=== PATIENT | male | born 1935 | race Caucasian/White ===

== ENCOUNTER 2019-08-16 08:44 | Day surgery (SDC) | payer MEDICARE, SELFPAY ==
--- NOTE | 2019-08-15 16:41 | PM.PREOP ---
Pre-operative Note Interval Note History & Physical reviewed/Exam performed by Physician: Yes Changes to H&P: No
--- NOTE | 2019-08-16 07:26 | PM.OP.1 ---
Operative Date/Time/Diagnoses Date of procedure: 08/16/19 Time of procedure: 09:45 Procedure & Clinicians Procedure: Preoperative diagnoses: 1. 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 Postoperative diagnoses: 1. Bilateral upper lid dermatochalasis treated with blepharoplasty 2. Status post ectropion repair with spindle procedure and horizontal lid shortening. 3. Punctal malrotation with punctal stenosis. Procedure: Bilateral upper blepharoplasty for functional symptoms. Bilateral lower lid functional ectropion repair. Bilateral lower lid punctal 3 snip procedure and probe. Surgeon: Angelica Birmingham MD Complications: none Specimen: None Blood loss: Less than 3 mL Anesthesia: Local infiltration with monitored standby. Indications: Bilateral upper lids obstructing superior vision. Preoperative external photographs taken and loss of vision to within 2 mm of marginal light reflex. Functional surgery. Bilateral lower lid laxity with exposure symptoms and malrotated puncta. Patient presents with excessive irritation and tearing from exposure due to bilateral lower lid laxity malposition the of the lacrimal puncta which were also closed. The patient has failed conservative measures including lubrication and antibiotic ointment and desires surgery to improve these symptoms. Procedure: In the preoperative holding area the amount skin and subcutaneous tissue to be removed was marked with indelible ink. The contours were carefully checked for symmetry and planned procedure discussed with the patient. The patient was taken to the operating room. IV sedation was given. Proparacaine drops were placed in both eyes for comfort. Local infiltration of anesthetic 2.5 cc into each upper lid and lateral canthus bilaterally, consisting of 1% xylocaine with epinephrine, normal saline and 1 cc hyluronidase was placed. This was then supplemented with full strength 2% xylocaine with epinephrine, 0.5% bupivacaine, and 1 cc hyalurondase. The face was prepped and draped. Attention was placed to the right upper lid. Using the previous springer a number 15. Bard-Nick blade was used to incise a skin muscle flap. The flap was lifted and removed. Cautery was applied as needed. Contouring of the muscle belly was also performed. Exploration of the nasal and preoperneurotic fat pads were performed removal and contouring with hemostat and scissors as well as cautery were performed. The lid was then closed with running and interrupted 6 0 Vicryl sutures. Attention was placed to the right lower lid. A punctal dilator was used to enlarge the punctum. It was then probed to the nose. Tenotomy scissors were used to make a 3 snip procedure to enlarge the punctum permanently. A spindle procedure using 6 0 Vicryl was placed through an incision made 8 mm below the punctum the lower lid retractors were exposed and cauterized. The double-arm suture was then placed through and through the lid and externalized and closed on the external surface. Attention was placed to the lateral canthus. A 15. Ubiterra-Nick blade was used to make an incision for 1 cm. The periosteum was exposed. Cautery was used as needed. The inferior canthal tendon was lysed with scissors. A tarsal strip was formed with clearance of the anterior and posterior lamella and any exposed lashes. Minimal shortening was performed. The strip was then transected with 4.0 Mersilene type suture which was placed double-armed through the periosteum and tied with multiple knots at the orbital rim. The outer tarsus and lid was then closed with 6 0 interrupted sutures. The procedure was repeated on the left side in identical fashion. There was minimal bleeding. The patient returned to the recovery room in good condition. Sutures will be removed in the office in approximately 10 days. Same procedure was repeated for the left upper lid and lower lid. The Betadine was removed. Maxitrol ointment was placed to suture line. She returned to recovery room in stable condition. Instructions for postoperative cold packs were reviewed. Angelica Birmingham MD.
[2019-08-16 09:03] VITALS: BMI 28.3
[2019-08-16 09:06] VITALS: BP 150/88; PULSE 62; RESP 20; TEMP 35.9; O2SAT 97
[2019-08-16] MEDS: LACTATED RINGERS 1,000 ML 42 ML IV (09:11)
[2019-08-16] MEDS: PROPARACAINE 0.5% OPHTH SOL 2 DROPS EYE-BOTH (10:00)
[2019-08-16] MEDS: NEOMYCIN/POLY/DEX OPHTH OINT 1 APPLIC EYE-BOTH ×2 (10:31→12:15)
[2019-08-16] MEDS: LIDOCAINE 1% W/EPI 3 ML, SODIUM CHLORIDE 0.9% 2 ML, HYALURONIDASE 150 UNIT INJ ×2 (10:33→10:35)
[2019-08-16] MEDS: LIDOCAINE 2% W/EPI 3 ML, BUPIVACAINE 0.5% (PF) 2 ML, HYALURONIDASE 150 UNIT INJ ×2 (10:34→10:36)
[2019-08-16] MEDS: LIDOCAINE 1% W/EPI 20 ML INJ (10:38)
[2019-08-16 12:40] VITALS: BP 139/40; PULSE 61; RESP 16; TEMP 36.3; O2SAT 95
[2019-08-16 13:00] VITALS: BP 144/77; PULSE 56; RESP 16; TEMP 36.4; O2SAT 98
--- NOTE | 2019-08-16 16:40 | SUR.PHASEII ---
Late note: Dr. Birmingham to bedside and spoke at length with pt's about d/c instructions, both voiced an understanding. Both eyes eccymotic and weepy- serosanguinous drainage. Ice on and off to area. Pt left when ready and left in stable condition.
== END 2019-08-16 13:17 | disposition home or self-care (01) ==
PROVIDERS: Visit Provider Ophthalmology
PROC: (CPT 15820; principal; 2019-08-16 09:45)
DX: H02.834 Dermatochalasis of left upper eyelid (principal); H02.831 Dermatochalasis of right upper eyelid; H02.132 Senile ectropion of right lower eyelid; H02.135 Senile ectropion of left lower eyelid; H04.553 Acquired stenosis of bilateral nasolacrimal duct; H21.81 Floppy iris syndrome
CPT/HCPCS: 67917; 15823; 68440; J2250; J2704; J3470

== ENCOUNTER → 2019-10-20 10:35 | Outpatient (CLI) | payer MEDICARE, SELFPAY ==
--- NOTE | 2019-10-20 | DI.NM.S_ITS ---
PROCEDURE: NM KINSEY PERF SPECT REST & STR Rest and exercise myocardial perfusion SPECT with gated imaging and ejection fraction RADIOPHARMACEUTICAL: 13.7 mCi Tc-99m sestamibi IV at rest and 27.0 mCi Tc-99m sestamibi IV at peak exercise. A two day-protocol was performed. INDICATIONS: Chronic systolic (congestive) heart failure TECHNIQUE: Radiopharmaceutical was injected at peak stress test, and also at rest. SPECT images were obtained. SPECT myocardial perfusion images were displayed in short axis, horizontal long axis, and vertical long axis views. Gated images were reviewed using [employer] software. COMPARISON: None. CARDIAC STRESS: A standard Cody treadmill exercise tolerance test was performed by the patient under the supervision of an attending staff. The patient exercised for 4 minutes and 12 seconds; functional aerobic impairment (PARVIN) is +3%. Hemodynamic data: There is normal blood pressure and heart rate response to exercise stress. Patient achieved 112% of maximum predicted heart rate at peak exercise. Symptoms: Patient denied chest pain during exercise. EKG: Resting ECG shows sinus rhythm with RBBB. No diagnostic EKG changes of ischemia; occasional PVCs. FINDINGS: Raw data: There is good myocardial labeling by radiotracer. No significant motion artifacts. Vlqi-rj-lcgiz ratio is 0.34 (normal is less than 0.38 for sestamibi tracer, and less than 0.50 for thallium tracer). Left ventricle function: Gated images demonstrate normal left ventricle wall thickening. No segmental wall motion abnormality. No transient ischemic dilation; TID is 0.7 (normal less than 1.3). The left ventricle resting end-diastolic volume is 94 mL. Left ventricle stress ejection fraction is 76%; normal values are above 45%. Myocardial perfusion: There is a moderately intense fixed inferior wall defect that essentially resolves on prone imaging, suggesting diaphragmatic attenuation rather than prior infarction. No ischemia. IMPRESSION: Low risk, probably normal treadmill nuclear stress test. 1) Probably normal perfusion images. There is a moderately intense fixed inferior wall defect that essentially resolves on prone imaging, suggesting diaphragmatic attenuation than rather prior infarction. No ischemia. 2) Normal left ventricular size, wall motion, and systolic function (EF post stress 76%). 3) No ECG evidence of ischemia. 4) No angina during the study. 5) Mildly reduced exercise tolerance (7.0 METs, PARVIN +3%). Target heart rate achieved. 6) Hypertensive response to exercise (resting BP 132/72mmHg, max BP 220/100mmHg). 7) No prior nuclear stress test available for comparison. Dictated by: Richard Trimble MD on 10/20/2019 at 16:56 Approved by: Richard Trimble MD on 10/20/2019 at 17:13
--- NOTE | 2019-10-20 | DI.ECHO.S_ITS ---
[place] [facility]---------+ [facility] +---------+ : : [address] : : : : [id number] : : : : Phone: [phone]+ Echocardiogram Report + + :Name: MARIBELL BARLOW Study Date: 10/20/2019 Height: 74 in : :[facility] Exam Location: IS Weight: 224 lb : : Gender: Male BSA: 2.3 m2 : :: 1935 Age: 84 yrs BP: 142/68 mmHg: :Reason For Study: Congestive Heart Failure : : Performed By: Carlota Page : :Referring: TIMO MALDONADO D : + + Interpretation Summary Normal sinus rhythm with wide QRS complexes and occasional PAC's. Normal LV size, wall thickness, wall motion and LV systolic function. EF is 60-65%. Stage I diastolic dysfunction. Mild RV enlargement with normal RV function. No significant valvular abnormalities. Estimated PA systolic pressure is 38 mm Hg assuming RA pressure of 8 mm Hg. No prior study available for comparison. Procedure: A two-dimensional transthoracic echocardiogram with color flow and Doppler was performed. The study quality was technically adequate. There is no prior echocardiogram noted for this patient. The patient had occasional PVCs during the exam. Left Ventricle: The left ventricle is normal in size and wall thickness. The ejection fraction is estimated to be 60-65%. Right Ventricle: The right ventricle is mildly dilated. The right ventricular systolic function is normal. Atria: Both atria are normal in size. There is no Doppler evidence for an interatrial shunt. Mitral Valve: The mitral valve is normal in structure and function. There is trace mitral regurgitation. Aortic Valve: The aortic valve is trileaflet. The aortic valve opens well. No aortic regurgitation is present. Tricuspid Valve: The tricuspid valve is normal in structure and function. There is trace tricuspid regurgitation. The right ventricular systolic pressure is estimated to be at least 38 mmHg based on an estimated right atrial pressure of 8 mm Hg. Pulmonic Valve: The pulmonic valve is not well seen, but is grossly normal. Great Vessels: The aortic root is normal size. The ascending aorta is mildly enlarged. The pulmonary artery is not well visualized, but is probably normal size. The IVC is dilated (diameter is greater than 2.1 cm) yet it collapses greater than 50% with a sniff. This suggests a right atrial pressure of 8 mm Hg. Pericardium/ Pleura There is an anterior echo-free space consistent with a fat pad. There is no pericardial effusion. There is no pleural effusion. MMode/2D Measurements & Calculations LVIDd: 4.1 cm LVOT diam: 2.4 cm LVIDs: 3.3 cm Ao root diam: 3.5 cm FS: 19.3 % asc Aorta Diam: 3.8 cm EPSS: 0.88 cm IVSd: 0.68 cm LVPWd: 0.74 cm LV lawson. diameter/BSA (cm/m^2): 1.8 LV sys. diameter/BSA (cm/m^2): 1.5 LA A2 area: 19.2 cm2 RA long axis: 5.6 cm LA A4 area: 24.3 cm2 RA area: 21.8 cm2 LA length (vol): 5.7 cm RA vol: 72.3 ml LA vol: 69.0 ml RA : 31.7 ml/m2 LA vol index: 30.3 ml/m2 IVC diam: 2.2 cm RVD1 (basal): 4.2 cm RVD2 (mid): 4.1 cm TAPSE: 2.2 cm Doppler Measurements & Calculations Ao V2 max: 124.6 cm/sec LVOT Max Raheel: 76.3 cm/sec Ao V2 mean: 88.2 cm/sec LV V1 max P.3 mmHg Ao max P.2 mmHg LV V1 VTI: 14.9 cm Ao mean P.3 mmHg WOODY(I,D): 3.2 cm2 Ao V2 VTI: 21.4 cm WOODY(V,D): 2.8 cm2 sev ratio: 0.70 WOODY indexed to BSA (cm^2/m^2): 1.4 MV E max raheel: 56.4 cm/sec TR max raheel: 273.3 cm/sec MV A max raheel: 84.7 cm/sec TR max P.9 mmHg MV E/A: 0.67 PA V2 max: 75.0 cm/sec Med Peak E' Raheel: 7.9 cm/sec PA V2 mean: 43.3 cm/sec E/E' med: 7.1 PA mean P.89 mmHg Lat Peak E' Raheel: 6.2 cm/sec PA Accel Time: 0.09 sec E/E' lat: 9.1 E/e' average: 8.1 MV dec time: 0.42 sec MV P1/2t: 121.9 msec MV P1/2t max raheel: 56.6 cm/sec SV(LVOT): 68.1 ml MVA(P1/2t): 1.8 cm2 Electronically signed by: Taylor Maradiaga M.D. on Reading Physician:10/20/2019 07:05 PM
--- NOTE | 2019-10-20 15:52 | PM.TREADMILL ---
Cardiac Stress Test Report Referral & Results Date Patient Seen: 10/20/19 Time Patient Seen: 15:52 Requesting provider: Marcos Curry Indication: chf Rest ECG: sinus rhythm with ivcd and diffuse nonspecific st changes Procedure Note: Standard dariana procotol, 4:12, 5.3 METS Reduced exercise capacity, PARVIN +3% Normal hemodynamic response to exercise No chest pain or anginal symptoms Resting ECG sinus rhythm with IVCD and diffuse nonspecific st changes; ST depression in v4-v6; no ectopy Impression: non conclusive exercise stress test. Nuclear images pending. Please note: Actual ECG tracings can be found in the PACS system.
== END ==
PROVIDERS: Referring Provider Family Medicine; Visit Provider Family Medicine
DX: R94.31 Abnormal electrocardiogram [ECG] [EKG] (principal); I50.22 Chronic systolic (congestive) heart failure; I25.10 Atherosclerotic heart disease of native coronary artery without angina pectoris; I10 Essential (primary) hypertension; I25.2 Old myocardial infarction; R01.2 Other cardiac sounds; Z87.891 Personal history of nicotine dependence
CPT/HCPCS: 78452; 93017; 93306; A9502

== ENCOUNTER → 2021-03-27 08:37 | Outpatient (CLI) | payer MEDICARE, SELFPAY ==
[2021-03-27 19:36] LABS: Add Manual Diff / Slide Review NO; Basophils Absolute Auto 100 /uL (0-100); Basophils Percent Auto 0.9 % (0-2); Eosinophils Absolute Auto 200 /uL (0-450); Eosinophils Percent Auto 1.5 % (2-4); Hemoglobin 16.4 g/dL (13.5-17.5); Lymphocytes Absolute Auto 1500 /uL (1100-4500); Lymphocytes Percent Auto 13.9 % (25-40); Mean Corpuscular HGB Conc 33.4 % (30-36); Mean Corpuscular Hemoglobin 33.4 PG (26-34); Mean Corpuscular Volume 99.9 fL (80-100); Monocytes Absolute Auto 900 /uL (0-900); Monocytes Percent Auto 8.2 % (3-14); Neutrophils Absolute Auto 8000 /uL (1500-7000); Neutrophils Percent Auto 75.5 % (50-75); Platelet Count 66 X10^3/uL (150-400); Red Blood Cell Count 4.91 X10^6/uL (4.5-5.9); Red Cell Distribution Width 12.1 % (11.6-14.8); White Blood Cell Count 10.6 X10^3/uL (4.5-11.0)
== END ==
PROVIDERS: PCP Family Medicine; Referring Provider Family Medicine; Visit Provider Family Medicine
DX: D69.6 Thrombocytopenia, unspecified (principal)
CPT/HCPCS: 85025

== ENCOUNTER → 2021-04-30 10:48 | Outpatient (CLI) | payer MEDICARE, SELFPAY ==
[2021-04-30 20:08] LABS: Alanine Aminotransferase 35 IU/L (<50); Albumin 4.1 g/dL (3.5-5.0); Albumin Globulin Ratio 1.4 (1.0-2.8); Alkaline Phosphatase 85 U/L (38-126); Aspartate Aminotransferase 35 IU/L (17-59); Bilirubin Total 1.5 mg/dL (0.2-1.3); Bilirubin Unconjugated 1.2 mg/dL (0.0-1.1); Cholesterol 143 mg/dL (140-199); HDL Cholesterol 42 mg/dL (40-60); HEMOLYSIS < 15 (0-50); LDL Cholesterol Calculated 75 mg/dL (<100); Total Protein 7.1 g/dL (6.3-8.2); Triglycerides 132 mg/dL (35-150)
== END ==
PROVIDERS: PCP Family Medicine; Visit Provider Internal Medicine Cardiovascular Disease
DX: J44.9 Chronic obstructive pulmonary disease, unspecified (principal)
CPT/HCPCS: 80061; 80076

== ENCOUNTER → 2021-05-15 12:17 | Outpatient (CLI) | payer MEDICARE, SELFPAY ==
[2021-05-15 19:37] LABS: C-Reactive Protein Quant 1.6 mg/dL (<1.0)
[2021-05-15 19:39] LABS: Add Manual Diff / Slide Review NO; Basophils Absolute Auto 100 /uL (0-100); Basophils Percent Auto 1.1 % (0-2); Eosinophils Absolute Auto 200 /uL (0-450); Hematocrit 49.9 % (41-53); Hemoglobin 16.6 g/dL (13.5-17.5); Lymphocytes Absolute Auto 1900 /uL (1100-4500); Lymphocytes Percent Auto 22.4 % (25-40); Mean Corpuscular HGB Conc 33.4 % (30-36); Mean Corpuscular Hemoglobin 32.4 PG (26-34); Mean Corpuscular Volume 97.1 fL (80-100); Monocytes Absolute Auto 700 /uL (0-900); Monocytes Percent Auto 7.9 % (3-14); Neutrophils Absolute Auto 5500 /uL (1500-7000); Neutrophils Percent Auto 66.6 % (50-75); Red Blood Cell Count 5.14 X10^6/uL (4.5-5.9); Red Cell Distribution Width 12.5 % (11.6-14.8); White Blood Cell Count 8.3 X10^3/uL (4.5-11.0)
[2021-05-15 19:45] LABS: Platelet Count 19 X10^3/uL (150-400)
[2021-05-15 20:00] LABS: Appearance Urine UA CLEAR; Bilirubin Urine UA NEGATIVE (NEGATIVE); Color Urine UA YELLOW; Glucose Urine UA NEGATIVE (Negative); Ketones Urine UA NEGATIVE (NEGATIVE); Leukocyte Esterase Urine UA NEGATIVE (NEGATIVE); Nitrite Urine UA NEGATIVE (Negative); Occult Blood Urine UA TRACE-LYSED (Negative); Protein Urine UA NEGATIVE (Negative); Urobilinogen Urine UA 0.2 E.U./dL (0.2)
[2021-05-15 20:12] LABS: Rheumatoid Factor < 8.6 IU/mL (<12.0)
[2021-05-15 20:18] LABS: Erythrocyte Sedimentation Rate 4 MM/HR (0-15)
[2021-05-15 21:05] LABS: Platelet Estimate Decreased on smear; RBC Morphology Normal Morphology
[2021-05-21 16:15] LABS: Antimyeloperoxidase AB <9.0 U/mL (0.0-9.0); Antiproteinase 3 AB <3.5 U/mL (0.0-3.5); Atypical P-ANCA Titer <1:20 titer (Neg:<1:20); C-ANCA Titer <1:20 titer (Neg:<1:20); P-ANCA Titer <1:20 titer (Neg:<1:20)
[2021-05-23 12:22] LABS: Aureobasidium pullulans IgG Negative (Negative); Micropolyspora faeni IgG Negative (Negative); Pigeon Serum IgG Negative (Negative); Thermoactinomyces sacchari IgG Negative (Negative); Thermoactinomyces vulgaris IgG Negative (Negative)
== END ==
PROVIDERS: PCP Family Medicine; Visit Provider Internal Medicine
DX: J84.89 Other specified interstitial pulmonary diseases (principal); D69.6 Thrombocytopenia, unspecified
CPT/HCPCS: 81003; 83520; 85025; 85651; 86038; 86140; 86256; 86331; 86430; 86602; 86606; 86609; 86671

== ENCOUNTER → 2021-05-21 10:42 | Outpatient (CLI) | payer MEDICARE, SELFPAY ==
[2021-05-21 20:28] LABS: Add Manual Diff / Slide Review NO; Basophils Absolute Auto 0 /uL (0-100); Basophils Percent Auto 0.7 % (0-2); Eosinophils Absolute Auto 100 /uL (0-450); Eosinophils Percent Auto 2.1 % (2-4); Hematocrit 51.1 % (41-53); Hemoglobin 17.1 g/dL (13.5-17.5); Lymphocytes Absolute Auto 1900 /uL (1100-4500); Lymphocytes Percent Auto 29.7 % (25-40); Mean Corpuscular HGB Conc 33.4 % (30-36); Mean Corpuscular Hemoglobin 32.6 PG (26-34); Mean Corpuscular Volume 97.8 fL (80-100); Monocytes Absolute Auto 400 /uL (0-900); Monocytes Percent Auto 6.5 % (3-14); Neutrophils Absolute Auto 4000 /uL (1500-7000); Red Blood Cell Count 5.23 X10^6/uL (4.5-5.9); Red Cell Distribution Width 13.1 % (11.6-14.8); White Blood Cell Count 6.5 X10^3/uL (4.5-11.0)
[2021-05-21 20:53] LABS: RBC Morphology Normal Morphology
[2021-05-21 21:26] LABS: Platelet Count 30 X10^3/uL (150-400)
== END ==
PROVIDERS: PCP Family Medicine; Visit Provider Family Medicine
DX: D69.6 Thrombocytopenia, unspecified (principal)
CPT/HCPCS: 85025

== ENCOUNTER → 2021-05-29 10:42 | Outpatient (CLI) | payer MEDICARE, SELFPAY ==
[2021-05-29 11:19] LABS: COVID19 -Nasal RAPID Negative (Negative)
== END ==
PROVIDERS: PCP Family Medicine; Referring Provider Internal Medicine; Visit Provider Internal Medicine
DX: Z20.822 Contact with and (suspected) exposure to COVID-19 (principal)
CPT/HCPCS: 87635; C9803

== ENCOUNTER → 2021-05-29 10:44 | Outpatient (CLI) | payer MEDICARE, SELFPAY ==
--- NOTE | 2021-06-05 09:32 | PM.PFT.1 ---
Pulmonary Function Test Referral & Results Date Patient Seen: 05/29/21 Requesting provider: Greg Hernandez Results: The spirometry demonstrates an FVC of 3.62 L which is 76% of predicted. The FEV1 was measured at 2.48 L which is 74% of predicted. The FEV1/FVC ratio was 69 which is 96% of predicted. Following the administration of bronchodilator there was 11% improvement in FEV1 and a 67% improvement in FEF 25-75% Lung volumes show an SVC of 3.71 L which is 73% of predicted. The diffusing capacity was measured at 20.1 which is 51% of predicted. No hemoglobin value was provided, so no correction for potential anemia could be made, if appropriate. The maximum voluntary ventilation was reduced Interpretation: This study demonstrates perhaps mild obstructive lung disease based on reduction FEV1 although FEV1/FVC ratio is preserved. There is also evidence of limited benefit following bronchodilator as noted above. Shape a flow volume loop is also somewhat concave which would also suggest the presence of some degree of obstructive lung disease There is a mild reduction in lung volumes suggesting restrictive lung disease is also present which may account for abnormalities in FEV1 above Diffusing capacity is moderately reduced suggesting more significant disease at the capillary alveolar level Compared to PFTs performed in November 2016, current study is essentially unchanged although previous study did not demonstrate any improvement post bronchodilator. Clinical correlation suggested
== END ==
PROVIDERS: PCP Family Medicine; Referring Provider Internal Medicine Pulmonary Disease; Visit Provider Internal Medicine Pulmonary Disease
DX: J84.89 Other specified interstitial pulmonary diseases (principal); J44.9 Chronic obstructive pulmonary disease, unspecified; Z20.822 Contact with and (suspected) exposure to COVID-19; Z87.891 Personal history of nicotine dependence
CPT/HCPCS: 87635; 94060; 94726; 94729; C9803

== ENCOUNTER → 2021-06-10 09:39 | Outpatient (CLI) | payer MEDICARE, SELFPAY ==
[2021-06-10 19:37] LABS: Add Manual Diff / Slide Review NO; Basophils Absolute Auto 100 /uL (0-100); Basophils Percent Auto 0.9 % (0-2); Eosinophils Absolute Auto 100 /uL (0-450); Eosinophils Percent Auto 1.9 % (2-4); Hematocrit 51.1 % (41-53); Hemoglobin 16.9 g/dL (13.5-17.5); Lymphocytes Absolute Auto 2100 /uL (1100-4500); Lymphocytes Percent Auto 26.8 % (25-40); Mean Corpuscular HGB Conc 33.1 % (30-36); Mean Corpuscular Hemoglobin 31.9 PG (26-34); Mean Corpuscular Volume 96.4 fL (80-100); Monocytes Absolute Auto 400 /uL (0-900); Monocytes Percent Auto 5.8 % (3-14); Neutrophils Absolute Auto 5000 /uL (1500-7000); Neutrophils Percent Auto 64.6 % (50-75); Platelet Count 52 X10^3/uL (150-400); Red Blood Cell Count 5.31 X10^6/uL (4.5-5.9); Red Cell Distribution Width 13.2 % (11.6-14.8); White Blood Cell Count 7.7 X10^3/uL (4.5-11.0)
== END ==
PROVIDERS: PCP Family Medicine; Visit Provider Internal Medicine
DX: D69.6 Thrombocytopenia, unspecified (principal)
CPT/HCPCS: 85025

== ENCOUNTER → 2021-07-11 09:36 | Outpatient (CLI) | payer MEDICARE, SELFPAY ==
[2021-07-11 19:27] LABS: Add Manual Diff / Slide Review NO; Basophils Absolute Auto 100 /uL (0-100); Basophils Percent Auto 0.8 % (0-2); Eosinophils Absolute Auto 100 /uL (0-450); Eosinophils Percent Auto 0.9 % (2-4); Hematocrit 48.3 % (41-53); Hemoglobin 16.4 g/dL (13.5-17.5); Lymphocytes Absolute Auto 1900 /uL (1100-4500); Lymphocytes Percent Auto 23.1 % (25-40); Mean Corpuscular Hemoglobin 32.1 PG (26-34); Mean Corpuscular Volume 94.5 fL (80-100); Monocytes Absolute Auto 300 /uL (0-900); Monocytes Percent Auto 4.1 % (3-14); Neutrophils Absolute Auto 5900 /uL (1500-7000); Neutrophils Percent Auto 71.1 % (50-75); Platelet Count 53 X10^3/uL (150-400); Red Blood Cell Count 5.11 X10^6/uL (4.5-5.9); Red Cell Distribution Width 13.7 % (11.6-14.8); White Blood Cell Count 8.4 X10^3/uL (4.5-11.0)
== END ==
PROVIDERS: PCP Family Medicine; Visit Provider Internal Medicine
DX: D69.6 Thrombocytopenia, unspecified (principal)
CPT/HCPCS: 85025

== ENCOUNTER → 2021-08-11 09:50 | Outpatient (CLI) | payer MEDICARE, SELFPAY ==
[2021-08-12 20:21] LABS: Add Manual Diff / Slide Review NO; Basophils Absolute Auto 0 /uL (0-100); Basophils Percent Auto 0.6 % (0-2); Eosinophils Absolute Auto 100 /uL (0-450); Eosinophils Percent Auto 1.8 % (2-4); Hematocrit 50.2 % (41-53); Hemoglobin 16.6 g/dL (13.5-17.5); Lymphocytes Absolute Auto 2000 /uL (1100-4500); Lymphocytes Percent Auto 28.2 % (25-40); Mean Corpuscular HGB Conc 33.2 % (30-36); Mean Corpuscular Hemoglobin 31.7 PG (26-34); Mean Corpuscular Volume 95.5 fL (80-100); Monocytes Absolute Auto 400 /uL (0-900); Monocytes Percent Auto 6.3 % (3-14); Neutrophils Absolute Auto 4400 /uL (1500-7000); Neutrophils Percent Auto 63.1 % (50-75); Platelet Count 127 X10^3/uL (150-400); Red Blood Cell Count 5.26 X10^6/uL (4.5-5.9); White Blood Cell Count 6.9 X10^3/uL (4.5-11.0)
== END ==
PROVIDERS: PCP Family Medicine; Referring Provider Internal Medicine; Visit Provider Internal Medicine
DX: D69.6 Thrombocytopenia, unspecified (principal)
CPT/HCPCS: 85025

== ENCOUNTER → 2021-09-12 09:41 | Outpatient (CLI) | payer MEDICARE, SELFPAY ==
[2021-09-12 19:12] LABS: Add Manual Diff / Slide Review NO; Basophils Absolute Auto 0 /uL (0-100); Basophils Percent Auto 0.6 % (0-2); Eosinophils Absolute Auto 100 /uL (0-450); Eosinophils Percent Auto 1.7 % (2-4); Hematocrit 48.8 % (41-53); Hemoglobin 16.5 g/dL (13.5-17.5); Lymphocytes Absolute Auto 1900 /uL (1100-4500); Lymphocytes Percent Auto 27.5 % (25-40); Mean Corpuscular HGB Conc 33.7 % (30-36); Mean Corpuscular Hemoglobin 31.6 PG (26-34); Mean Corpuscular Volume 93.7 fL (80-100); Monocytes Absolute Auto 500 /uL (0-900); Monocytes Percent Auto 6.9 % (3-14); Neutrophils Absolute Auto 4500 /uL (1500-7000); Neutrophils Percent Auto 63.3 % (50-75); Platelet Count 149 X10^3/uL (150-400); Red Blood Cell Count 5.21 X10^6/uL (4.5-5.9); Red Cell Distribution Width 14.5 % (11.6-14.8); White Blood Cell Count 7.1 X10^3/uL (4.5-11.0)
== END ==
PROVIDERS: PCP Family Medicine; Visit Provider Internal Medicine
DX: D69.6 Thrombocytopenia, unspecified (principal)
CPT/HCPCS: 85025

== ENCOUNTER → 2021-09-23 08:30 | Outpatient (CLI) | payer MEDICARE, SELFPAY ==
[2021-09-23 19:16] LABS: Alanine Aminotransferase 24 IU/L (<50); Albumin 3.7 g/dL (3.5-5.0); Albumin Globulin Ratio 1.3 (1.0-2.8); Alkaline Phosphatase 78 U/L (38-126); Aspartate Aminotransferase 29 IU/L (17-59); Bilirubin Total 1.2 mg/dL (0.2-1.3); Bilirubin Unconjugated 1.1 mg/dL (0.0-1.1); Cholesterol 142 mg/dL (140-199); Globulin 2.9 g/dL (1.7-4.1); HDL Cholesterol 42 mg/dL (40-60); HEMOLYSIS < 15 (0-50); LDL Cholesterol Calculated 76 mg/dL (<100); Total Protein 6.6 g/dL (6.3-8.2); Triglycerides 122 mg/dL (35-150)
== END ==
PROVIDERS: PCP Family Medicine; Visit Provider Internal Medicine Cardiovascular Disease
DX: I25.118 Atherosclerotic heart disease of native coronary artery with other forms of angina pectoris (principal); D69.6 Thrombocytopenia, unspecified; I48.0 Paroxysmal atrial fibrillation
CPT/HCPCS: 80061; 80076

== ENCOUNTER → 2021-10-14 09:29 | Outpatient (CLI) | payer MEDICARE, SELFPAY ==
[2021-10-14 18:40] LABS: Add Manual Diff / Slide Review NO; Basophils Absolute Auto 100 /uL (0-100); Basophils Percent Auto 0.7 % (0-2); Eosinophils Absolute Auto 100 /uL (0-450); Eosinophils Percent Auto 1.8 % (2-4); Hematocrit 50.8 % (41-53); Hemoglobin 17.2 g/dL (13.5-17.5); Lymphocytes Absolute Auto 2000 /uL (1100-4500); Lymphocytes Percent Auto 24.4 % (25-40); Mean Corpuscular HGB Conc 33.8 % (30-36); Mean Corpuscular Volume 94.5 fL (80-100); Monocytes Absolute Auto 500 /uL (0-900); Monocytes Percent Auto 5.5 % (3-14); Neutrophils Absolute Auto 5600 /uL (1500-7000); Neutrophils Percent Auto 67.6 % (50-75); Platelet Count 158 X10^3/uL (150-400); Red Blood Cell Count 5.38 X10^6/uL (4.5-5.9); Red Cell Distribution Width 14.2 % (11.6-14.8); White Blood Cell Count 8.3 X10^3/uL (4.5-11.0)
== END ==
PROVIDERS: PCP Family Medicine; Visit Provider Internal Medicine
DX: D69.6 Thrombocytopenia, unspecified (principal)
CPT/HCPCS: 85025

== ENCOUNTER → 2022-05-28 12:17 | Outpatient (CLI) | payer MEDICARE, SELFPAY ==
--- NOTE | 2022-05-28 12:25 | DI.RAD.S_ITS ---
PROCEDURE: XR CHEST 2V INDICATIONS: Paroxysmal atrial fibrillation TECHNIQUE: 2 views of the chest were acquired. COMPARISON: None. FINDINGS: Surgical changes and devices: None. Lungs and pleura: Mild diffuse reticulonodular pulmonary opacity. No pleural effusions or pneumothorax. Mediastinum: Mediastinal contours are normal. Heart size is normal. Bones and chest wall: No suspicious bony abnormalities. Soft tissues appear unremarkable. IMPRESSION: Mild atypical pneumonia versus scarring. Dictated by: Shira Floyd M.D. on 05/28/2022 at 13:41 Approved by: Shira Floyd M.D. on 05/28/2022 at 13:41
== END ==
PROVIDERS: PCP Family Medicine; Referring Provider Internal Medicine Cardiovascular Disease; Visit Provider Internal Medicine Cardiovascular Disease
DX: I48.0 Paroxysmal atrial fibrillation (principal)
CPT/HCPCS: 71046

== ENCOUNTER 2025-02-13 09:22 | Outpatient (CLI) | payer MEDICARE, SELFPAY ==
[2025-02-13] VITALS (8 sets, daily range): BP systolic 115–183; BP diastolic 55–81; PULSE 62–69; RESP 14–20; TEMP 36.1; O2SAT 91–98
[2025-02-13] MEDS: MIDAZOLAM 2 MG/2 ML VIAL IV (10:35)
[2025-02-13] MEDS: DEXAMETHASONE 10 MG/ML VIAL INJ (10:42)
[2025-02-13] MEDS: BUPIVACAINE 0.25% (PF) VIAL 2 ML INJ (10:43)
[2025-02-13] MEDS: iopamidoL 15 ML VIAL 3 ML INJ (10:44)
[2025-02-13] MEDS: BETAMETHASONE 30 MG/5 ML MDV 12 MG INJ (10:44)
--- NOTE | 2025-02-13 10:48 | P.PCN_ITS ---
Date/Time/Diagnoses Date of procedure: 02/13/25 Time of procedure: 10:48 Pre-procedure diagnosis: 1. HNP WITH RADICULAR FEATURES, 2. MULTILEVEL CENTRAL STENOSIS, Post-procedure diagnosis: same Procedure Notes Procedure: 1. FLUOROSCOPICALLY GUIDED CONTRAST CONTROLLED INTERLAMINAR EPIDURAL STEROID INJECTION - L3/4 Indications: Andrei is referred by Dr. Reveles for treatment of Bilateral Foraminal Stenosis L>R LE symptoms. Physician: Vishal Tsai Total Fluoroscopy time (seconds): 12 Total sedation minutes: 10 Complications: none Procedure in detail & Post-procedure care: FINDINGS Multilevel Central Spinal Stenosis with Nerve Root Compression DESCRIPTION OF PROCEDURE Fluoroscopically guided, contrast-controlled L3/4 translaminar epidural steroid injection. Following review of allergy and review of potential side effects and complications, including, but not necessarily limited to, infection, allergic reaction, local tissue breakdown, temporary as well as permanent nerve injury, paralysis, stroke and possible , the patient indicated that the patient understood and agreed to proceed. An informed consent document was signed by the patient, witnessed by a nurse, and placed in the patient's chart. Additionally, other treatment options including modalities, medications, and physical therapy were reviewed with the patient. After review of previous anaesthesic history and IV conscious sedation the patient was deemed safe to proceed with today?s procedure with IV conscious sedation as ASA class II designation. Safety time-out was performed to confirm patient ID, procedure to be performed and site of procedure. IV sedation was accomplished with a combination of 2mg of Versed was administered by the RN after DO order, titrated to patient comfort during the course of the procedure while the patient remained responsive to all verbal commands. In the prone position, following sterile prep and drape of the lumbar region, the L3/4 translaminar space was identified fluoroscopically. The skin was anesthetized via a 25-gauge, 1.5-inch needle with 1% lidocaine solution. At this point, a 22-gauge short bevel spinal needle was atraumatically introduced and advanced under fluoroscopic guidance into the region of the L3/4 translaminar space. Depth was confirmed on lateral view. Radiological data, including multiple fluoroscopic views of the lumbar spine, reveal a spinal needle at the L3/4 translaminar space. Lateral views then show placement of the needle in the epidural space. Subsequent views show contrast material flowing superiorly and inferiorly in the epidural space. No vascular or intrathecal uptake is observed. At this point, using loss of resistance technique with saline and air, the epidural space was entered. This was confirmed following negative aspiration with injection of approximately 1.5 cc of Isovue 200, showing excellent epidural flow without vascular or intrathecal uptake. At this point, 1cc of 0.25% ma rcaine solution combined with 3cc or 10mg of dexamethasone and 12mg of betamethasone was injected without incident. The patient tolerated the procedure well without signs or symptoms of complications prior to transfer to the recovery area continued monitoring without incident. The patient was then transferred to the recovery area where they were observed for an appropriate period of time after the injection. The patient reported a VAS score of 7 prior to the procedure and a post- procedure VAS of 1. POST OP INSTRUCTIONS The patient was provided a Pain Log to continue to record their response to the target-specific procedure prior to follow-up visit with their referring physician. Additionally, specific post-injection care instructions and a contact number to our office were provided if concerns arise regarding possible complications associated with the procedure are suspected.
== END 2025-02-13 11:05 | disposition home or self-care (01) ==
LOC: RAD 09:23
PROVIDERS: PCP Family Medicine; Referring Provider Physical Medicine & Rehabilitation; Visit Provider Physical Medicine & Rehabilitation
DX: M48.062 Spinal stenosis, lumbar region with neurogenic claudication (principal); M51.16 Intervertebral disc disorders with radiculopathy, lumbar region
CPT/HCPCS: 62323; 99152; J0702; J1100; J2250